=== PATIENT | male | born 1960 | race African-American/Black ===

== ENCOUNTER 2020-07-06 16:24 | Outpatient (CLI) | payer BC, SELFPAY | END 2020-07-06 16:25 | disposition home or self-care (01) | LOC: ANHCOVIDVC 16:24 | PROVIDERS: PCP Internal Medicine | DX: Z23 Encounter for immunization (principal) | CPT/HCPCS: 0001A; 91300 ==

== ENCOUNTER 2020-07-27 16:05 | Outpatient (CLI) | payer BC, SELFPAY | END 2020-07-27 16:06 | disposition home or self-care (01) | LOC: ANHCOVIDVC 16:05 | PROVIDERS: PCP Internal Medicine | DX: Z23 Encounter for immunization (principal) | CPT/HCPCS: 0002A; 91300 ==

== ENCOUNTER → 2020-08-07 01:12 | Outpatient (CLI) | payer BC, SELFPAY ==
[2020-08-07 19:43] LABS: SARS-CoV-2 RNA PCR Negative
== END ==
PROVIDERS: PCP Internal Medicine; Visit Provider Internal Medicine Gastroenterology
DX: Z01.812 Encounter for preprocedural laboratory examination (principal); Z20.822 Contact with and (suspected) exposure to COVID-19
CPT/HCPCS: C9803; U0003; U0005

== ENCOUNTER 2020-08-10 01:15 | Day surgery (SDC) | payer BC, SELFPAY ==
[2020-07-29 10:41] VITALS: BMI 26.9
[2020-08-10 07:37] VITALS: BP 152/91; PULSE 67; RESP 16; TEMP 36.1; O2SAT 100; BMI 27.0
--- NOTE | 2020-08-10 07:41 | P.HP_ITS ---
History of Present Illness History of Present Illness Consent: Risks, benefits, and alternatives have been discussed and questions answered. Patient agrees to proceed with procedure. Chief complaint: neoplasm screening Narrative: Lourdes Winslow is a 59 year old male referred for colon cancer screening his last colonoscopy was 10 years ago Review of Systems Review of Systems: All systems reviewed & are unremarkable except as noted in HPI and below PMFSH Past Medical History Medical History Hyperlipidemia Hypertension Surgical History Surgical History History of appendectomy [place] teeth removed Social History Social History Smoking status: Never smoker Alcohol intake: never Living arrangements: alone Spiritual care concerns: No Meds Home Medications and Allergies Home Medications Medication Instructions Recorded Confirmed Type multivitamin-ferrous 1 tablet PO DAILY 04/14/19 08/10/20 History fumarate-folic acid 18 mg-400 mcg tablet vitamin E 200 unit capsule 200 unit PO DAILY 04/14/19 08/10/20 History lisinopril 20 1 tablet PO DAILY #90 tablet 11/25/19 08/10/20 Rx mg-hydrochlorothiazide 12.5 mg tablet rosuvastatin 40 mg tablet 40 mg PO DAILY #90 tablet 11/25/19 08/10/20 Rx amlodipine 2.5 mg tablet 2.5 mg PO DAILY #30 tablet 05/26/20 08/10/20 Rx Nexletol 180 mg PO DAILY 07/29/20 08/10/20 History Allergies Allergy/AdvReac Type Severity Reaction Status Date / Time NKDA Allergy Unknown Unknown Uncoded 08/10/20 07:36 Vital Signs Vital Signs - 24 hr 08/10/20 07:37 Temperature 36.1 C L Pulse Rate 67 Respiratory Rate 16 Blood Pressure 152/91 H Pulse Oximetry 100 Exam 2 Const: General: alert Orientation/consciousness: patient oriented x3 Resp: Auscultation: clear to auscultation bilaterally Cardio: Rhythm: regular rhythm GI: GI Palp: Yes Soft to palpation and No Tenderness to palpation present (GI) Neuro: General: patient oriented x3 Assessment and Plan Assessment and plan (1) Encounter for screening colonoscopy: Code(s): Z12.11 - Encounter for screening for malignant neoplasm of colon Status: Acute Assessment and Plan: Colonoscopy with possible biopsy or polypectomy or cautery or injection of substances.
[2020-08-10] MEDS: LACTATED RINGERS 1,000 ML 150 ML IV CONT (07:49)
--- NOTE | 2020-08-10 07:56 | P.PNAN_ITS ---
Anes - Initial Pre Proc Eval Procedure: Operation Date: 08/10/20 08:30 Proposed Procedures p Screening Colonoscopy - Pj Stover MD Date/Time: 08/10/20 07:56 Surgeon: Pj Stover MD Pre Op Diagnosis: neoplasm screening Patient Data Age: 59 Gender: M Height: 1.83 m Weight: 90.5 kg Last Vital Signs Temp 36.1 C L 08/10/20 07:37 Pulse 67 08/10/20 07:37 Resp 16 08/10/20 07:37 BP 152/91 H 08/10/20 07:37 Pulse Ox 100 08/10/20 07:37 Allergies Allergy/AdvReac Type Severity Reaction Status Date / Time NKDA Allergy Unknown Unknown Uncoded 08/10/20 07:36 Home Medications Medication Instructions Recorded Confirmed Type multivitamin-ferrous 1 tablet PO DAILY 04/14/19 08/10/20 History fumarate-folic acid 18 mg-400 mcg tablet vitamin E 200 unit capsule 200 unit PO DAILY 04/14/19 08/10/20 History lisinopril 20 1 tablet PO DAILY #90 tablet 11/25/19 08/10/20 Rx mg-hydrochlorothiazide 12.5 mg tablet rosuvastatin 40 mg tablet 40 mg PO DAILY #90 tablet 11/25/19 08/10/20 Rx amlodipine 2.5 mg tablet 2.5 mg PO DAILY #30 tablet 05/26/20 08/10/20 Rx Nexletol 180 mg PO DAILY 07/29/20 08/10/20 History Patient hx anesthesia problems: none Family hx anesthesia problems: none [facility] Past Medical History Medical History Hyperlipidemia Hypertension Surgical History Surgical History History of appendectomy [place] teeth removed Social History Social History Smoking status: Never smoker Alcohol intake: never Living arrangements: alone Spiritual care concerns: No Anes - Eval Final PreProcedure Day of Procedure 08/10/20 07:56 Patient weight: overweight Heart: regular rate and rhythm Lungs: clear to auscultation and normal air movement Airway: Mallampati scale class III Neurological: alert and oriented Last oral intake: >/= 8 hours ASA classification: II Emergent: no Anesthetic plan: proceed Anesthesia type and monitoring: general GIVS and standard monitoring Informed Consent: The patient's anesthetic plan and its attendant risks and benefits were discussed with the patient/family/POA. Questions were solicited and answers provided to the satisfaction of the patient/family/POA.
[2020-08-10 08:38] VITALS: BP 99/62; PULSE 65; RESP 14; O2SAT 99
[2020-08-10 08:48] VITALS: BP 101/64; PULSE 62; RESP 23; O2SAT 100
[2020-08-10 08:58] VITALS: BP 126/82; PULSE 70; RESP 21; O2SAT 100
== END 2020-08-10 09:27 | disposition home or self-care (01) ==
PROVIDERS: PCP Internal Medicine; Visit Provider Internal Medicine Gastroenterology
PROC: 0DJD8ZZ Inspection of Lower Intestinal Tract, Via Natural or Artificial Opening Endoscopic (ICD-10-PCS; CPT 45378; principal; 2020-08-10 08:30)
DX: Z12.11 Encounter for screening for malignant neoplasm of colon (principal); D12.2 Benign neoplasm of ascending colon; K64.8 Other hemorrhoids; I10 Essential (primary) hypertension; E78.5 Hyperlipidemia, unspecified
CPT/HCPCS: 45385; 88305; J2704; J7120

== ENCOUNTER 2022-11-16 00:58 | Day surgery (SDC) | payer BC, SELFPAY ==
[2022-11-06 08:34] VITALS: BMI 26.2
--- NOTE | 2022-11-15 20:35 | PM.HPGS ---
History of Present Illness History of Present Illness Consent: Risks, benefits, and alternatives have been discussed and questions answered. Patient agrees to proceed with procedure. Chief complaint: hx colon polyps Narrative: Lourdes Winslow is a 61 year old male who is referred for colon cancer screening.Had n dvnced adenom removed 2+ years ago. Review of Systems Review of Systems: All systems reviewed & are unremarkable except as noted in HPI and below PMFSH Past Medical History Medical History Cataract, right eye Hyperlipidemia Hypertension Surgical History Surgical History History of appendectomy [place] teeth removed Social History Social History Smoking status: Never smoker Second hand tobacco smoke exposure: No Alcohol intake: never Substance use: never Substance use type: does not use Lack of Transportation: No Lack of Food: Never True Current Housing: I Have Housing Concerned About Future Housing: No Difficulty Paying Gas/Electric Bills: No Difficulty Paying for Meds: No Currently Unemployed: No Education: Bachelor's Degree Difficulty w/ Childcare or Family Care: No Living arrangements: with family Spiritual care concerns: No Meds Home Medications and Allergies Home Medications Medication Instructions Recorded Confirmed Type cholecalciferol (vitamin D3) 10 10 mcg PO DAILY 02/01/21 11/06/22 History mcg (400 unit) capsule amlodipine 5 mg tablet 5 mg PO DAILY #90 tabs 08/08/21 11/06/22 Rx rosuvastatin 40 mg tablet (Crestor) 40 mg PO DAILY #90 tabs 08/08/21 11/06/22 Rx vitamin E (dl, acetate) 450 mg 450 mg PO DAILY 08/09/21 11/06/22 History (1,000 unit) capsule Allergies Allergy/AdvReac Type Severity Reaction Status Date / Time NKDA Allergy Unknown Unknown Uncoded 11/16/22 10:22 Exam Const: General: alert Orientation/consciousness: patient oriented x3 Resp: Auscultation: clear to auscultation bilaterally Cardio: Rhythm: regular rhythm GI: GI Palp: Yes Soft to palpation and No Tenderness to palpation present (GI) Neuro: General: patient oriented x3 Assessment and Plan Assessment and plan (1) Encounter for screening colonoscopy: Code(s): Z12.11 - Encounter for screening for malignant neoplasm of colon Status: Acute Assessment and Plan: Colonoscopy with possible biopsy or polypectomy or cautery or injection of substances.
[2022-11-16 10:23] VITALS: BP 156/104; PULSE 78; RESP 18; TEMP 36.5; O2SAT 100
[2022-11-16] MEDS: LACTATED RINGERS 1,000 ML 150 ML IV CONT (10:33)
--- NOTE | 2022-11-16 10:35 | P.PNAN_ITS ---
Anes - Initial Pre Proc Eval Procedure: Operation Date: 11/16/22 11:30 Proposed Procedures p Colonoscopy - Pj Stover MD Date/Time: 11/16/22 10:35 Surgeon: Pj Stover MD Pre Op Diagnosis: hx colon polyps Patient Data Age: 61 Gender: M Height: 1.85 m Weight: 89.5 kg Last Vital Signs Temp 36.5 C 11/16/22 10:23 Pulse 78 11/16/22 10:23 Resp 18 11/16/22 10:23 BP 156/104 H 11/16/22 10:23 Pulse Ox 100 11/16/22 10:23 O2 Del Method Room Air 11/16/22 10:23 Allergies Allergy/AdvReac Type Severity Reaction Status Date / Time NKDA Allergy Unknown Unknown Uncoded 11/16/22 10:22 Home Medications Medication Instructions Recorded Confirmed Type cholecalciferol (vitamin D3) 10 10 mcg PO DAILY 02/01/21 11/06/22 History mcg (400 unit) capsule amlodipine 5 mg tablet 5 mg PO DAILY #90 tabs 08/08/21 11/06/22 Rx rosuvastatin 40 mg tablet (Crestor) 40 mg PO DAILY #90 tabs 08/08/21 11/06/22 Rx vitamin E (dl, acetate) 450 mg 450 mg PO DAILY 08/09/21 11/06/22 History (1,000 unit) capsule Patient hx anesthesia problems: none Family hx anesthesia problems: none Results Review: All pre-operative results and documents have been reviewed as part of the pre- operative evaluation. [facility] Past Medical History Medical History Cataract, right eye Hyperlipidemia Hypertension Surgical History Surgical History History of appendectomy [place] teeth removed Social History Social History Smoking status: Never smoker Second hand tobacco smoke exposure: No Alcohol intake: never Substance use: never Substance use type: does not use Lack of Transportation: No Lack of Food: Never True Current Housing: I Have Housing Concerned About Future Housing: No Difficulty Paying Gas/Electric Bills: No Difficulty Paying for Meds: No Currently Unemployed: No Education: Bachelor's Degree Difficulty w/ Childcare or Family Care: No Living arrangements: with family Spiritual care concerns: No Anes - Eval Final PreProcedure Day of Procedure 11/16/22 10:35 Patient weight: normal Heart: regular rate and rhythm Lungs: clear to auscultation Airway: Mallampati scale class III Neurological: alert and oriented Last oral intake: >/= 8 hours ASA classification: II Emergent: no Anesthetic plan: proceed Anesthesia type and monitoring: general GIVS and standard monitoring Results Review: All pre-operative results and documents have been reviewed as part of the pre- operative evaluation. Informed Consent: The patient's anesthetic plan and its attendant risks and benefits were discussed with the patient/family/POA. Questions were solicited and answers provided to the satisfaction of the patient/family/POA.
[2022-11-16 11:26] VITALS: BP 114/75; PULSE 66; RESP 18; O2SAT 100
[2022-11-16 11:36] VITALS: BP 124/81; PULSE 63; RESP 20; O2SAT 100
[2022-11-16 11:45] VITALS: BP 138/88; PULSE 68; RESP 18; O2SAT 100
== END 2022-11-16 11:54 | disposition home or self-care (01) ==
PROVIDERS: PCP Family Medicine; Visit Provider Internal Medicine Gastroenterology
PROC: 0DJD8ZZ Inspection of Lower Intestinal Tract, Via Natural or Artificial Opening Endoscopic (ICD-10-PCS; CPT 45378; principal; 2022-11-16 11:30)
DX: Z12.11 Encounter for screening for malignant neoplasm of colon (principal); K64.8 Other hemorrhoids; Z86.010 Personal history of colon polyps; I10 Essential (primary) hypertension; E78.5 Hyperlipidemia, unspecified
CPT/HCPCS: 45378; J2704; J7120

== ENCOUNTER 2022-12-06 10:25 | Outpatient (CLI) | payer BC, SELFPAY ==
--- NOTE | ~2022-12-06 | XR_ITS ---
EXAMINATION: XR_RIBSBI_CR INDICATION: Bilateral rib pain TECHNIQUE: 3 views of the bilateral ribs were obtained. COMPARISON: None. FINDINGS: Bone windows were made. There is no fracture. The lungs are free of acute opacities. No ple ural effusion or pneumothorax. IMPRESSION: 1. No acute cardiopulmonary abnormality or evidence of displaced rib fracture. Reviewed, dictated and finalized at location F.
--- NOTE | 2022-12-06 10:53 | ECG_ITS ---
Measurements Intervals [place] Rate: 58 P: 70 [place]: 166 QRS: 1 QRSD: 100 T: -9 QT: 430 QTc: 423 Interpretive Statements SINUS BRADYCARDIA LEFT VENTRICULAR HYPERTROPHY AND ST-T CHANGE MINIMAL Q WAVES- ANTEROLAT/HIGH LAT LEADS BORDERLINE ST-T WAVE ABNORMALITY- INFERIOR LEADS BORDERLINE ECG COMPARED TO ECG 10/31/2018 10:28:56 SINUS BRADYCARDIA NOW PRESENT Electronically Signed On 12-06-2022 11:19:53 CDT by Jose Ramon Cortez D.O.
[2022-12-06 11:53] LABS: Troponin I < 0.012 ng/mL (0.000-0.034)
== END 2022-12-06 10:26 | disposition home or self-care (01) ==
PROVIDERS: PCP Family Medicine; Visit Provider Family Medicine
DX: M95.4 Acquired deformity of chest and rib (principal); R07.9 Chest pain, unspecified; I10 Essential (primary) hypertension; R94.31 Abnormal electrocardiogram [ECG] [EKG]
CPT/HCPCS: 36415; 71110; 84484; 93005

== ENCOUNTER 2023-01-01 11:04 | Outpatient (CLI) | payer BC, SELFPAY ==
--- NOTE | ~2023-01-01 | US_ITS ---
EXAMINATION: US soft tissue chest DATE: 01/01/2023 11:38 INDICATION: Acquired deformity of chest and rib. Right chest lump. TECHNIQUE: Multiple grayscale and Doppler ultrasound images of the chest were obtained. COMPARISON: Rib radiographs 12/06/2022 FINDINGS: The patient's area of concern in right chest correlates with a prominent rib. IMPRESSION: 1. Prominent right rib correlating with the patient's area of concern. Note that a mass cannot be exc luded. If there is clinical concern for rib mass, noncontrast chest CT is recommended. Reviewed, dictated and finalized at location A. IMPRESSION: 1. Prominent right rib correlating with the patient's area of concern. Note tamiko t a mass cannot be excluded. If there is clinical concern for rib mass, noncont rast chest CT is recommended.
== END 2023-01-01 11:05 | disposition home or self-care (01) ==
PROVIDERS: PCP Family Medicine; Visit Provider Family Medicine
DX: M95.4 Acquired deformity of chest and rib (principal)
CPT/HCPCS: 76604

== ENCOUNTER 2023-03-06 13:36 | Outpatient (CLI) | payer BC, SELFPAY ==
--- NOTE | ~2023-03-06 | CT_ITS ---
CT Scan of the Chest without Contrast: Clinical Indication: Swelling, mass, anterior chest wall nodule Technique: Contiguous sections were acquired throughout the chest without intravenous contrast. Dose reduction technique was used on this scan by utilizing automated exposure control and iterative recon struction technique. The dose-length product (DLP) was 227.58 mGy-cm. Findings: There is no evidence of any significant mediastinal, hilar or axillary lymphadenopathy. The mediastin al soft tissues appear normal. There is no evidence of pleural or pericardial effusion. The lungs are clear. No pulmonary nodules or infiltrates are noted. Images through the upper abdomen reveal no abnormalities. Impression: No significant abnormalities seen. No abnormal mass lesion identified. Reviewed, dictated and finalized at location . [employer] Impression: No significant abnormalities seen. No abnormal mass lesion identified.
== END 2023-03-06 13:37 | disposition home or self-care (01) ==
PROVIDERS: PCP Family Medicine; Visit Provider Family Medicine
DX: R22.2 Localized swelling, mass and lump, trunk (principal); M95.4 Acquired deformity of chest and rib
CPT/HCPCS: 71250

== ENCOUNTER 2023-10-12 15:38 | Outpatient (CLI) | payer BC, SELFPAY ==
--- NOTE | ~2023-10-12 | US_ITS ---
US soft tissue chest 10/12/2023 16:10 Indication: Localized swelling. Mass. Procedure: Realtime ultrasound of the chest soft tissues in the area of palpable concern Comparison: CT chest dated 03/06/2023 Findings: Patient's area of palpable concern corresponds to prominent rib near the sternum. No suspic ious masses. This finding correlates to prior ultrasound dated 01/01/2023. Impression: 1: Prominent right rib correlating to the area of patient's concern without significant change from p rior ultrasound dated 01/01/2023. Reviewed, dictated and finalized at location B. Impression: 1: Prominent right rib correlating to the area of patient's concern without sig nificant change from prior ultrasound dated 01/01/2023.
== END 2023-10-12 15:39 | disposition home or self-care (01) ==
PROVIDERS: PCP Family Medicine; Visit Provider Family Medicine
DX: R22.2 Localized swelling, mass and lump, trunk (principal); M95.4 Acquired deformity of chest and rib
CPT/HCPCS: 76604

== ENCOUNTER 2024-03-21 16:23 | Outpatient (CLI) | payer BC, SELFPAY ==
--- NOTE | ~2024-03-21 | CT_ITS ---
Non-contrast CT scan of the Abdomen Clinical indication: Renal cyst Technique: 2.5 mm axial scans were obtained through the abdomen without intravenous or oral contrast . Dose reduction technique was used on this scan by utilizing automated exposure control and iterativ e reconstruction technique. The dose-length product (DLP) was 328.73 mGy-cm. Findings: Images through the lung bases reveal no abnormalities. The kidneys and the ureters are nondilated. Probable 18 mm left renal cyst with focal calcification w ithin it. Questionable punctate renal stones. The liver, spleen, pancreas, gallbladder, and adrenals appear normal. There is no aortic aneurysm. Visualized bowel loops are unremarkable. No ascites. Impression: Probable 18 mm left renal cysts with focal calcification within it. Probable punctate renal stones. Reviewed, dictated and finalized at [facility]. [employer] Impression: Probable 18 mm left renal cysts with focal calcification within it. Probable punctate renal stones.
== END 2024-03-21 16:24 | disposition home or self-care (01) ==
PROVIDERS: PCP Family Medicine; Visit Provider Family Medicine
DX: N28.1 Cyst of kidney, acquired (principal); N28.89 Other specified disorders of kidney and ureter; N20.0 Calculus of kidney
CPT/HCPCS: 74150